=== PATIENT | female | born 1995 | race African-American/Black ===

== ENCOUNTER 2019-01-07 10:20 | Emergency (ER) | payer MEDICAID, OTHER, SELFPAY ==
[2019-01-07 11:10] LABS: Pregnancy Test - Urine (BHCG) POSITIVE (Negative); Pregu Control Background? CLEAR/WHITE (CLR/WHITE); Pregu Control Bar Appear? YES (CONTROL BAR)
[2019-01-07 11:30] LABS: Bacteria/HPF None Seen HPF (None Seen); Bilirubin Negative (Negative); Blood, Urine Negative (Negative); Clarity Clear (Clear); Glucose, Urine (Dipstick) Normal (Negative); Leukocyte Negative Leu/uL (Negative); Nitrite Negative (Negative); Protein, Urine (Dipstick) Negative (Neg-Trace); RBC/HPF 0-3 HPF (0-3); Urobilinogen Normal mg/dL (Less than 2); WBC/HPF 0-3 HPF (0-3)
[2019-01-07 11:59] LABS: #Eosinphils 0.1 thou/uL (0.0-0.7); #Lymphocytes 2.1 thou/uL (1.20-3.40); #Monocytes 0.6 thou/uL (0.11-0.59); %Basophils 0.5 % (0.0-1.0); %Eosinophils 0.8 % (0.0-10.0); %Lymphocytes 30.9 % (21.0-51.0); %Monocytes 8.8 % (0.0-10.0); Hemoglobin 11.9 g/dL (12.0-16.0); Mean Corpuscular HGB CONC 33.3 g/dL (32.0-36.0); Mean Corpuscular Hemoglobin 28.8 pg (27.0-31.0); Mean Corpuscular Volume 86.6 fL (78.0-98.0); Mean Platelet Volume 7.2 fL (7.4-10.4); Platelet Count 266 thou/uL (130-400); RBC Distribution Width 14.8 % (11.5-14.5); Red Blood Cell (RBC) Count 4.14 mill/uL (4.20-5.40); White Blood Cell (WBC) Count 6.7 thou/uL (4.8-10.8)
[2019-01-07 12:15] LABS: ALT (SGPT) 8 U/L (8-55); AST (SGOT) 15 U/L (5-34); Albumin 4.3 g/dL (3.5-5.0); Alkaline Phosphatase 36 U/L (40-110); Anion Gap 11 mmol/L (10-20); BUN (Urea Nitrogen) 4 mg/dL (7.0-18.7); Bilirubin, Total 0.5 mg/dL (0.2-1.2); Calc. Creatinine Clearance 0 mL/min (70-130); Calcium 9.3 mg/dL (7.8-10.44); Carbon Dioxide 26 mmol/L (22-29); Chloride 106 mmol/L (98-107); Estimated GFR-MDRD Greater than 90; Globulin 3.1 g/dL (2.4-3.5); Glucose 84 mg/dL (70-105); Potassium 3.6 mmol/L (3.5-5.1); Protein, Total 7.4 g/dL (6.0-8.3); Sodium 139 mmol/L (136-145)
== END 2019-01-07 12:45 | disposition home or self-care (01) ==
LOC: ERS 10:20
DX: O21.9 Vomiting of pregnancy, unspecified (principal); O99.89 Other specified diseases and conditions complicating pregnancy, childbirth and the puerperium; R19.7 Diarrhea, unspecified
CPT/HCPCS: 36415; 80053; 81003; 81025; 84702; 85025

== ENCOUNTER 2019-01-16 11:39 | Emergency (ER) | payer MEDICAID, OTHER ==
[2019-01-16 12:19] LABS: #Eosinphils 0.1 thou/uL (0.0-0.7); #Lymphocytes 2.1 thou/uL (1.20-3.40); #Monocytes 0.7 thou/uL (0.11-0.59); %Basophils 0.6 % (0.0-1.0); %Eosinophils 0.9 % (0.0-10.0); %Lymphocytes 30.8 % (21.0-51.0); %Monocytes 9.9 % (0.0-10.0); %Neutrophils 57.8 % (42.0-75.0); Mean Corpuscular HGB CONC 33.3 g/dL (32.0-36.0); Mean Corpuscular Hemoglobin 28.5 pg (27.0-31.0); Mean Corpuscular Volume 85.5 fL (78.0-98.0); Mean Platelet Volume 7.1 fL (7.4-10.4); Platelet Count 247 thou/uL (130-400); RBC Distribution Width 14.6 % (11.5-14.5); Red Blood Cell (RBC) Count 4.23 mill/uL (4.20-5.40); White Blood Cell (WBC) Count 6.9 thou/uL (4.8-10.8)
[2019-01-16 12:48] LABS: ALT (SGPT) Less than 7 U/L (8-55); AST (SGOT) 13 U/L (5-34); Albumin 4.3 g/dL (3.5-5.0); Alkaline Phosphatase 38 U/L (40-110); Anion Gap 11 mmol/L (10-20); BUN (Urea Nitrogen) 7 mg/dL (7.0-18.7); Bilirubin, Total 0.4 mg/dL (0.2-1.2); Calc. Creatinine Clearance 0 mL/min (70-130); Calcium 9.6 mg/dL (7.8-10.44); Carbon Dioxide 25 mmol/L (22-29); Chloride 105 mmol/L (98-107); Estimated GFR-MDRD Greater than 90; Globulin 3.1 g/dL (2.4-3.5); Glucose 77 mg/dL (70-105); Potassium 4.1 mmol/L (3.5-5.1); Protein, Total 7.4 g/dL (6.0-8.3); Sodium 137 mmol/L (136-145)
== END 2019-01-16 14:10 | disposition home or self-care (01) ==
LOC: ERS 11:39
DX: O21.9 Vomiting of pregnancy, unspecified (principal); Z3A.08 8 weeks gestation of pregnancy
CPT/HCPCS: 36415; 80053; 85025

== ENCOUNTER 2019-02-02 09:02 | Emergency (ER) | payer MEDICAID, OTHER ==
[2019-02-02] MEDS ORDERED: Ondansetron PF 4 MG/2 ML Vial ONE (09:20)
[2019-02-02 09:36] LABS: #Eosinphils 0.1 thou/uL (0.0-0.7); #Lymphocytes 1.7 thou/uL (1.20-3.40); #Monocytes 0.6 thou/uL (0.11-0.59); #Neutrophils 4.1 thou/uL (1.40-6.50); %Basophils 0.6 % (0.0-1.0); %Eosinophils 1.1 % (0.0-10.0); %Lymphocytes 26.3 % (21.0-51.0); %Monocytes 8.8 % (0.0-10.0); %Neutrophils 63.2 % (42.0-75.0); Hemoglobin 11.3 g/dL (12.0-16.0); Mean Corpuscular Hemoglobin 28.8 pg (27.0-31.0); Mean Corpuscular Volume 84.8 fL (78.0-98.0); Mean Platelet Volume 7.2 fL (7.4-10.4); Platelet Count 254 thou/uL (130-400); RBC Distribution Width 14.4 % (11.5-14.5); Red Blood Cell (RBC) Count 3.92 mill/uL (4.20-5.40); White Blood Cell (WBC) Count 6.5 thou/uL (4.8-10.8)
[2019-02-02 09:57] LABS: Anion Gap 9 mmol/L (10-20); BUN (Urea Nitrogen) 6 mg/dL (7.0-18.7); Calc. Creatinine Clearance 0 mL/min (70-130); Calcium 9.2 mg/dL (7.8-10.44); Carbon Dioxide 25 mmol/L (22-29); Chloride 104 mmol/L (98-107); Estimated GFR-MDRD Greater than 90; Glucose 77 mg/dL (70-105); Potassium 3.9 mmol/L (3.5-5.1); Sodium 134 mmol/L (136-145)
== END 2019-02-02 10:25 | disposition home or self-care (01) ==
LOC: ERS 09:02
DX: O21.0 Mild hyperemesis gravidarum (principal); Z3A.09 9 weeks gestation of pregnancy
CPT/HCPCS: 80048; 85025; 96361; 96374; J2405

== ENCOUNTER 2019-02-14 17:26 | Observation (INO) | payer OTHER ==
[2019-02-14 17:53] LABS: Bacteria/HPF None Seen HPF (None Seen); RBC/HPF 0-3 HPF (0-3); WBC/HPF 0-3 HPF (0-3)
[2019-02-14 17:55] LABS: Bilirubin Small (Negative); Blood, Urine Negative (Negative); Glucose, Urine (Dipstick) Negative (Negative); Leukocyte Small (Negative); Nitrite Negative (Negative); Protein, Urine (Dipstick) 100 mg/dL (Neg-Trace)
[2019-02-14 17:57] LABS: #Basophils 0.1 thou/uL (0.0-0.2); #Eosinphils 0.1 thou/uL (0.0-0.7); #Lymphocytes 2.1 thou/uL (1.20-3.40); #Monocytes 0.7 thou/uL (0.11-0.59); #Neutrophils 6.2 thou/uL (1.40-6.50); %Basophils 0.7 % (0.0-1.0); %Eosinophils 0.6 % (0.0-10.0); %Lymphocytes 23.1 % (21.0-51.0); %Neutrophils 67.6 % (42.0-75.0); Hemoglobin 12.2 g/dL (12.0-16.0); Mean Corpuscular HGB CONC 35.2 g/dL (32.0-36.0); Mean Corpuscular Hemoglobin 30.3 pg (27.0-31.0); Mean Corpuscular Volume 86.1 fL (78.0-98.0); Platelet Count 287 thou/uL (130-400); RBC Distribution Width 14.1 % (11.5-14.5); Red Blood Cell (RBC) Count 4.04 mill/uL (4.20-5.40); White Blood Cell (WBC) Count 9.1 thou/uL (4.8-10.8)
[2019-02-14 17:59] LABS: Clarity Clear (Clear)
[2019-02-14 18:28] LABS: ALT (SGPT) Less than 7 U/L (8-55); AST (SGOT) 16 U/L (5-34); Albumin 4.1 g/dL (3.5-5.0); Alkaline Phosphatase 40 U/L (40-110); Anion Gap 12 mmol/L (10-20); BUN (Urea Nitrogen) 7 mg/dL (7.0-18.7); Bilirubin, Total 0.7 mg/dL (0.2-1.2); Calc. Creatinine Clearance 0 mL/min (70-130); Calcium 9.6 mg/dL (7.8-10.44); Carbon Dioxide 25 mmol/L (22-29); Chloride 102 mmol/L (98-107); Estimated GFR-MDRD Greater than 90; Globulin 3.5 g/dL (2.4-3.5); Glucose 94 mg/dL (70-105); Lipase 14 U/L (8-78); Potassium 3.1 mmol/L (3.5-5.1); Protein, Total 7.6 g/dL (6.0-8.3); Sodium 136 mmol/L (136-145)
[2019-02-14] MEDS ORDERED: Ondansetron PF 4 MG/2 ML Vial ONE (22:03)
[2019-02-14] MEDS ORDERED: Potassium Chloride 20 MEQ TAB ONE (22:03)
[2019-02-15 00:48] VITALS: BMI 20.2
[2019-02-15] MEDS ORDERED: Acetaminophen 500 MG TAB PO PRN (05:56)
[2019-02-15] MEDS ORDERED: NS 0.9% w/ 40 MEQ KCL 1,000 ML IV SCH (06:00)
[2019-02-15] MEDS ORDERED: Metoclopramide HCl 10 MG/2 ML VIAL IVP SCH (06:00)
[2019-02-15] MEDS ORDERED: Ondansetron PF 4 MG/2 ML Vial IVP SCH (06:00)
--- NOTE | 2019-02-15 06:33 | HP ---
HISTORY OF PRESENT ILLNESS: The patient is a 23-year-old G3, P2 female with an intrauterine at about 12 weeks' gestation, presenting with persistent nausea and vomiting to the emergency room. This will be her 4th presentation. She reports that the medications that she has taken in the past have not been helping her as she is not tolerating liquids or food very well. She reports vomiting day and night. Reports vomiting every time she tries to eat. She reports the Zofran had made her constipated and not had a bowel movement for about 2 weeks. Once she discontinued the Zofran, the patient had a large bowel movement yesterday and has since been having some diarrhea. The patient reports having significant morning sickness with her prior pregnancies, but nothing this serious. She reports about a 15-pound weight loss, dropping from 130 pounds to 118. She has not established care with any provider yet with this . She has been contemplating elective given how sick she has been. The patient denies any fever, fall or trauma. She is having headaches from the vomiting. Reports the nausea and vomiting and then the recent constipation and diarrhea. Denies any chest pain other than heartburn and has had some shortness of breath. Denies any new rashes, hip problems, knee problems, muscle weakness. Denies abdominal pain. She does say she is a little bit tender in the suprapubic region, but attributes that to muscle soreness from the vomiting. Denies any vaginal bleeding or leakage of fluid. PAST MEDICAL HISTORY: Negative. PAST SURGICAL HISTORY: She has had 2 prior C-sections. ALLERGIES: NO KNOWN DRUG ALLERGIES. MEDICATIONS: The patient has been on Zofran and Diclegis at home. SOCIAL HISTORY: Denies any drug, alcohol, or tobacco use currently. She is a former smoker and reports that she has since discontinued. REVIEW OF SYSTEMS: Per HPI. PHYSICAL EXAMINATION: VITAL SIGNS: Blood pressure 111/72, temperature 97.8, pulse of 101, respiratory rate of 20, saturating 100% on room air. GENERAL: She appears to be in no acute distress. She is alert, oriented, cooperative, and pleasant to interact with. HEAD: Normocephalic, atraumatic. LUNGS: Clear to auscultation bilaterally. HEART: Regular rate and rhythm. ABDOMEN: Soft. She has some minimal tenderness in the suprapubic region, but again reporting feels to be more muscular. EXTREMITIES: Nontender, nonedematous. LABORATORY DATA: Shows urinalysis negative for nitrites or bacteria or white blood cells. She does have small ketones present and a small amount of leukocyte esterase and 4 to 6 squamous cells. Sodium is 136, potassium is 3.1, BUN is 7, creatinine is 0.74. LFTs are within normal limits. White count of 9.1, hemoglobin 12.2, hematocrit 34.8, and platelets of 287,000. Quantitative HCG is pending. ASSESSMENT AND PLAN: The patient is a 23-year-old with persistent nausea and vomiting, hypokalemia and weight loss in the setting of , failing outpatient management. We have placed her on scheduled Zofran, vitamin B6, doxylamine and Reglan. She is currently n.p.o. with IV fluids. Once the patient's appetite has returned, we will attempt to feed her, and if successful, we will attempt to move her to oral medications with the Zofran and Reglan. Anticipate discharge home in the next 1 to 2 days. Job ID: [id number]
[2019-02-15] MEDS ORDERED: Doxylamine 25 MG TAB PO SCH (09:00)
[2019-02-15] MEDS ORDERED: pyridOXINE 50 MG (B6) TAB PO SCH (09:00)
[2019-02-15] MEDS ORDERED: Famotidine 20 MG TAB PO SCH (09:00)
[2019-02-15] MEDS ORDERED: Polyethylene Glycol 3350 17 GM Packet PO SCH (09:00)
--- NOTE | 2019-02-15 10:13 | ULT ---
Obstetric sonogram HISTORY: Early . Assess for viability. FINDINGS: Single intrauterine gestation in variable presentation. pole and yolk sac visualized. Heart motion at 155 bpm. Amniotic fluid within normal limits. Umbilical cord shows a normal insertion. Early gestational age l imits anatomic detail. Measurements correlate with 12 weeks 2 days gestational age. IMPRESSION: Single viable intrauterine gestation. Estimated gestational age 12 weeks 2 days.
[2019-02-15 11:57] VITALS: BP 105/57; TEMP 98.7
[2019-02-15] MEDS ORDERED: FLU VACC QS2019-20(6MOS UP)/PF 60 MCG/0.5 ML SYRINGE IM ONE (21:00)
--- NOTE | 2019-02-16 07:39 | DIS ---
DATE OF ADMISSION: 02/14/2019 DATE OF DISCHARGE: 02/15/2019 TIME OF SERVICE: 1200 hours. HOSPITAL COURSE: Ms. Bentley was admitted through the emergency room last night with hyperemesis. She is noted to be 12 weeks' gestation. She had had 4 visits to the emergency room. She was admitted for IV fluids, antiemetics, and potassium repletion. Of note, the patient is scheduled for elective termination of at [facility] in [place] tomorrow and desires to make that appointment. The patient has improved significantly. Vitals include temperature 98.7, pulse 94, respirations 20, blood pressure 105/57. The patient was mildly hypokalemic at 3.1 on admission. Her beta-hCG was noted to be 91,000. Urinalysis was unremarkable except for some ketones. On physical exam, her skin turgor is improved. Her abdomen is soft and nontender, and she is tolerating regular diet, on oral antiemetics. IMPRESSION: Doing well with hyperemesis. PLAN: Discharge the patient home per her request. I asked the patient if she needed any antiemetics. She has reported she had several at home and would use those. She was given ER precautions. We will follow up as necessary. Job ID: [id number]
== END 2019-02-15 15:05 | disposition home or self-care (01) ==
LOC: ERS 17:26 → 3SE 21:41
PROVIDERS: ADMIT Obstetrics & Gynecology; ATTEND Obstetrics & Gynecology
DX: O21.1 Hyperemesis gravidarum with metabolic disturbance (principal); O99.89 Other specified diseases and conditions complicating pregnancy, childbirth and the puerperium; R19.7 Diarrhea, unspecified; R63.4 Abnormal weight loss; Z3A.12 12 weeks gestation of pregnancy
CPT/HCPCS: 36415; 76815; 80053; 81003; 81015; 83690; 84702; 85025; 96361; 96374; 96375; 96376; G0378; J2405; J2765; J3480

== ENCOUNTER 2020-12-05 20:55 | Emergency (ER) | payer OTHER | END 2020-12-05 22:17 | disposition home or self-care (01) | LOC: ERS 20:55 | DX: R51.9 Headache, unspecified (principal); R00.0 Tachycardia, unspecified | CPT/HCPCS: 99283 ==

== ENCOUNTER 2020-12-06 15:40 | Emergency (ER) | payer OTHER ==
[2020-12-06] MEDS ORDERED: Acetaminophen 500 MG TAB ONE (17:11)
[2020-12-06] MEDS ORDERED: Prochlorperazine 10 MG/2 ML VIAL ONE (17:11)
[2020-12-06] MEDS ORDERED: Ketorolac Tromethamine 30 MG/ML VIAL ONE (17:11)
[2020-12-06] MEDS ORDERED: diphenhydrAMINE 50 MG/ML VIAL ONE (17:11)
[2020-12-06 17:33] LABS: Pregnancy Test - Urine (BHCG) Negative (Negative); Pregu Control Background? CLEAR/WHITE (CLR/WHITE); Pregu Control Bar Appear? YES (CONTROL BAR); Specific Gravity 1.026 (1.002-1.036)
[2020-12-06 22:41] LABS: SARS-CoV-2 PCR by NAA Not Detected (NotDetected)
== END 2020-12-06 17:10 | disposition home or self-care (01) ==
LOC: ERS 15:40
DX: R51.9 Headache, unspecified (principal); R00.0 Tachycardia, unspecified; Z20.822 Contact with and (suspected) exposure to COVID-19
CPT/HCPCS: 70450; 81025; 96374; 96375; 99283; J0780; J1200; J1885; U0003; U0005

== ENCOUNTER 2021-01-01 09:12 | Emergency (ER) | payer MEDICAID, OTHER ==
[2021-01-01] MEDS ORDERED: Ondansetron ODT 4 MG TAB ONE (10:00)
[2021-01-01 10:30] LABS: Bacteria/HPF None Seen HPF (None Seen); Bilirubin 1+ (Negative); Blood, Urine Negative (Negative); Clarity Turbid (Clear); Glucose, Urine (Dipstick) Normal (Negative); Ketone, Urine 60 mg/dL (Negative); Leukocyte 75 Leu/uL (Negative); Nitrite Negative (Negative); Pregnancy Test - Urine (BHCG) Negative (Negative); Pregu Control Background? CLEAR/WHITE (CLR/WHITE); Pregu Control Bar Appear? YES (CONTROL BAR); Protein, Urine (Dipstick) 30 mg/dL (Neg-Trace); RBC/HPF 0-3 HPF (0-3); Specific Gravity 1.038 (1.002-1.036); Specific Gravity, Urine 1.038 (1.002-1.036); pH, Urine 5.5 (5.0-9.0)
== END 2021-01-01 11:40 | disposition home or self-care (01) ==
LOC: ERS 09:12
DX: R11.2 Nausea with vomiting, unspecified (principal); R19.7 Diarrhea, unspecified
CPT/HCPCS: 81003; 81015; 81025; 87086; 99284; Q0162

== ENCOUNTER 2021-03-12 10:11 | Emergency (ER) | payer MEDICAID ==
[2021-03-12 20:29] LABS: SARS-CoV-2 PCR by NAA DETECTED (NotDetected)
== END 2021-03-12 11:34 | disposition home or self-care (01) ==
LOC: ERS 10:11
DX: U07.1 COVID-19 (principal)
CPT/HCPCS: 99283; U0003; U0005

== ENCOUNTER 2021-06-18 12:02 | Emergency (ER) | payer BC, MEDICAID ==
[2021-06-18 13:15] LABS: #Basophils 0.1 thou/uL (0.0-0.2); #Lymphocytes 0.7 thou/uL (1.20-3.40); #Monocytes 0.8 thou/uL (0.11-0.59); #Neutrophils 4.1 thou/uL (1.40-6.50); %Basophils 0.9 % (0.0-1.0); %Eosinophils 0.1 % (0.0-10.0); %Monocytes 14.5 % (0.0-10.0); %Neutrophils 72.5 % (42.0-75.0); Mean Corpuscular HGB CONC 31.6 g/dL (32.0-36.0); Mean Corpuscular Hemoglobin 27.3 pg (27.0-31.0); Mean Corpuscular Volume 86.4 fL (78.0-98.0); Mean Platelet Volume 8.2 fL (7.4-10.4); Platelet Count 219 thou/uL (130-400); RBC Distribution Width 13.7 % (11.5-14.5); Red Blood Cell (RBC) Count 4.78 mill/uL (4.20-5.40); White Blood Cell (WBC) Count 5.7 thou/uL (4.8-10.8)
[2021-06-18] MEDS ORDERED: Metoclopramide HCl 10 MG/2 ML VIAL ONE (13:37)
[2021-06-18] MEDS ORDERED: diphenhydrAMINE 50 MG/ML VIAL ONE (13:37)
[2021-06-18] MEDS ORDERED: Ketorolac Tromethamine 30 MG/ML VIAL ONE (13:37)
[2021-06-18] MEDS ORDERED: Acetaminophen 500 MG TAB ONE (13:37)
[2021-06-18 13:41] LABS: ALT (SGPT) 32 U/L (8-55); AST (SGOT) 38 U/L (5-34); Albumin 4.2 g/dL (3.5-5.0); Alkaline Phosphatase 78 U/L (40-110); Anion Gap 15 mmol/L (10-20); BUN (Urea Nitrogen) 9 mg/dL (7.0-18.7); Bilirubin, Total 0.3 mg/dL (0.2-1.2); Calc. Creatinine Clearance 0 mL/min (70-130); Calcium 9.5 mg/dL (7.8-10.44); Carbon Dioxide 22 mmol/L (22-29); Chloride 104 mmol/L (98-107); Globulin 3.8 g/dL (2.4-3.5); Glucose 96 mg/dL (70-105); Potassium 3.7 mmol/L (3.5-5.1); Sodium 137 mmol/L (136-145)
== END 2021-06-18 15:10 | disposition home or self-care (01) ==
LOC: ERS 12:02
DX: J10.1 Influenza due to other identified influenza virus with other respiratory manifestations (principal)
CPT/HCPCS: 36415; 80053; 85025; 87804; 96365; 96375; J1200; J1885; J2765

== ENCOUNTER 2021-08-26 13:42 | Inpatient (IN) | payer BC, OTHER ==
[2021-08-26 14:39] LABS: #Basophils 0.1 thou/uL (0.0-0.2); #Eosinphils 0.1 thou/uL (0.0-0.7); #Neutrophils 5.9 thou/uL (1.40-6.50); %Eosinophils 0.8 % (0.0-10.0); %Lymphocytes 22.2 % (21.0-51.0); %Monocytes 10.6 % (0.0-10.0); %Neutrophils 65.3 % (42.0-75.0); Hemoglobin 12.9 g/dL (12.0-16.0); Mean Corpuscular Hemoglobin 27.8 pg (27.0-31.0); Mean Platelet Volume 7.8 fL (7.4-10.4); Platelet Count 247 thou/uL (130-400); RBC Distribution Width 13.3 % (11.5-14.5); Red Blood Cell (RBC) Count 4.62 mill/uL (4.20-5.40)
[2021-08-26 15:03] LABS: ALT (SGPT) 31 U/L (8-55); AST (SGOT) 31 U/L (5-34); Acetaminophen Less than 10.0 mcg/mL (10.0-30.0); Alcohol Less than 10 mg/dL (Less than 10); Alkaline Phosphatase 60 U/L (40-110); Anion Gap 12 mmol/L (10-20); BUN (Urea Nitrogen) 11 mg/dL (7.0-18.7); Bilirubin, Total 0.4 mg/dL (0.2-1.2); CK (CPK) 57 U/L (29-168); Calc. Creatinine Clearance 0 mL/min (70-130); Calcium 9.8 mg/dL (7.8-10.44); Carbon Dioxide 25 mmol/L (22-29); Chloride 104 mmol/L (98-107); Globulin 3.1 g/dL (2.4-3.5); Glucose 109 mg/dL (70-105); Potassium 4.2 mmol/L (3.5-5.1); Protein, Total 7.1 g/dL (6.0-8.3); Salicylate Less than 8.0 mg/dL (15.0-30.0); Sodium 137 mmol/L (136-145)
[2021-08-26] MEDS ORDERED: Ibuprofen 200 MG TAB ONE (16:27)
[2021-08-26 16:48] LABS: Bilirubin Negative (Negative); Blood, Urine Negative (Negative); Clarity Clear (Clear); Glucose, Urine (Dipstick) Normal (Negative); Ketone, Urine Negative (Negative); Leukocyte Negative Leu/uL (Negative); Nitrite Negative (Negative); Protein, Urine (Dipstick) Negative (Neg-Trace); Specific Gravity, Urine 1.019 (1.002-1.036); Urobilinogen Normal mg/dL (Less than 2); pH, Urine 7.5 (5.0-9.0)
[2021-08-26 16:50] LABS: Pregnancy Test - Urine (BHCG) Negative (Negative); Pregu Control Background? CLEAR/WHITE (CLR/WHITE); Pregu Control Bar Appear? YES (CONTROL BAR); Specific Gravity 1.019 (1.002-1.036)
[2021-08-26 16:58] LABS: Amphetamine Not Detected (NotDetected); Barbiturates Screen Not Detected (NotDetected); Benzodiazepine Screen Not Detected (NotDetected); Cocaine Metabolite Screen Not Detected (NotDetected); Methadone Not Detected (NotDetected); Methamphetamine Not Detected (NotDetected); Opiate Screen Not Detected (NotDetected); Oxycodone Screen Not Detected (NotDetected); Phencyclidine (PCP) Not Detected (NotDetected); THC/Cannabinoid Screen Detected (NotDetected); Tricyclic Screen Not Detected (NotDetected)
[2021-08-26] MEDS ORDERED: Acetaminophen 500 MG TAB ONE (17:43)
[2021-08-26 19:00] LABS: Free T4 (Free Thyroxine) 2.01 ng/dL (0.70-1.48)
[2021-08-26] MEDS ORDERED: Ondansetron PF 4 MG/2 ML Vial IVP PRN (21:19)
[2021-08-26] MEDS ORDERED: HYDROcodone/Acetaminophen 7.5/325 mg Tablet PO PRN (21:19)
[2021-08-26] MEDS ORDERED: Melatonin 3 MG TAB PO PRN (21:24)
[2021-08-26] MEDS ORDERED: Methimazole 10 MG TAB PO SCH (22:45)
[2021-08-26] MEDS ORDERED: Enoxaparin Sodium 40 MG/0.4 ML SYRINGE SC SCH (22:45)
[2021-08-26] MEDS ORDERED: Propranolol HCl 20 MG TAB PO SCH (22:45)
[2021-08-26] MEDS ORDERED: Enoxaparin Sodium 40 MG/0.4 ML SYRINGE ONE (22:52)
[2021-08-26] MEDS ORDERED: HYDROcodone/Acetaminophen 5/325 mg Tablet ONE (22:52)
[2021-08-26] MEDS: HYDROcodone/Acetaminophen 5/325 mg Tablet PO PRN (23:03)
[2021-08-26] MEDS: Sodium Chloride 0.9% 1,000 ML IV SCH (23:07)
[2021-08-27 04:50] LABS: #Eosinphils 0.1 thou/uL (0.0-0.7); #Lymphocytes 3.2 thou/uL (1.20-3.40); #Monocytes 0.8 thou/uL (0.11-0.59); #Neutrophils 3.9 thou/uL (1.40-6.50); %Basophils 0.4 % (0.0-1.0); %Eosinophils 1.7 % (0.0-10.0); %Lymphocytes 39.2 % (21.0-51.0); %Monocytes 10.1 % (0.0-10.0); %Neutrophils 48.7 % (42.0-75.0); Hemoglobin 12.1 g/dL (12.0-16.0); Mean Corpuscular HGB CONC 32.1 g/dL (32.0-36.0); Mean Corpuscular Hemoglobin 27.9 pg (27.0-31.0); Mean Corpuscular Volume 86.8 fL (78.0-98.0); Mean Platelet Volume 8.1 fL (7.4-10.4); Platelet Count 219 thou/uL (130-400); RBC Distribution Width 13.5 % (11.5-14.5); Red Blood Cell (RBC) Count 4.35 mill/uL (4.20-5.40); White Blood Cell (WBC) Count 8.1 thou/uL (4.8-10.8)
[2021-08-27 05:28] LABS: ALT (SGPT) 32 U/L (8-55); AST (SGOT) 35 U/L (5-34); Albumin 3.5 g/dL (3.5-5.0); Alkaline Phosphatase 53 U/L (40-110); Anion Gap 13 mmol/L (10-20); BUN (Urea Nitrogen) 11 mg/dL (7.0-18.7); Bilirubin, Total 0.5 mg/dL (0.2-1.2); Calc. Creatinine Clearance 147 mL/min (70-130); Calcium 9.4 mg/dL (7.8-10.44); Carbon Dioxide 24 mmol/L (22-29); Chloride 106 mmol/L (98-107); Globulin 3.1 g/dL (2.4-3.5); Glucose 86 mg/dL (70-105); Potassium 4.1 mmol/L (3.5-5.1); Protein, Total 6.6 g/dL (6.0-8.3); Sodium 139 mmol/L (136-145)
[2021-08-27] MEDS ORDERED: HYDROcodone/Acetaminophen 5/325 mg Tablet ONE (07:53)
[2021-08-27] MEDS: HYDROcodone/Acetaminophen 5/325 mg Tablet PO PRN (07:56)
[2021-08-27] MEDS: Methimazole 10 MG TAB PO SCH (08:01)
[2021-08-27] MEDS: Propranolol HCl 20 MG TAB PO SCH ×2 (08:01→20:32)
[2021-08-27 08:48] LABS: SARS-CoV-2 NAA Rapid Test Not Detected (NotDetected)
[2021-08-27] MEDS: Sodium Chloride 0.9% 1,000 ML IV SCH (10:50)
[2021-08-27] MEDS: Acetaminophen 325 MG TAB PO PRN ×2 (17:00→23:54)
[2021-08-27] MEDS: Enoxaparin Sodium 40 MG/0.4 ML SYRINGE SC SCH (20:32)
[2021-08-28] MEDS: Sodium Chloride 0.9% 1,000 ML IV SCH ×2 (02:45→17:35)
[2021-08-28] MEDS: Atenolol 25 MG TAB PO SCH (10:13)
[2021-08-28] MEDS: Methimazole 10 MG TAB PO SCH (10:13)
[2021-08-28 10:59] VITALS: BMI 22.3
[2021-08-28] MEDS: Acetaminophen 325 MG TAB PO PRN (13:02)
[2021-08-28] MEDS: Enoxaparin Sodium 40 MG/0.4 ML SYRINGE SC SCH (21:04)
[2021-08-29] MEDS ORDERED: diphenhydrAMINE 25 MG CAP PO PRN (01:50)
[2021-08-29] MEDS: Sodium Chloride 0.9% 1,000 ML IV SCH (02:53)
[2021-08-29] MEDS: Atenolol 25 MG TAB PO SCH (11:57)
[2021-08-29] MEDS: Methimazole 10 MG TAB PO SCH (11:57)
[2021-08-29 16:31] VITALS: BP 136/88; TEMP 97.7
== END 2021-08-29 12:10 | disposition home or self-care (01) | DRG 644 ==
LOC: ERS 13:42 → EEVIPCON 13:42 → 2NO 19:49 → ERHOLD 20:01 → 2NO 08-27 14:03 → OBSVTOIN 08-27 15:59 → T4-B 08-28 23:48
PROVIDERS: ADMIT Internal Medicine; ATTEND Internal Medicine
DX: E05.00 Thyrotoxicosis with diffuse goiter without thyrotoxic crisis or storm (principal); R45.851 Suicidal ideations; E21.3 Hyperparathyroidism, unspecified; Z20.822 Contact with and (suspected) exposure to COVID-19; F32.A Depression, unspecified; M54.50 Low back pain, unspecified; M79.672 Pain in left foot; M79.642 Pain in left hand; F41.9 Anxiety disorder, unspecified; Z81.8 Family history of other mental and behavioral disorders; Z83.2 Family history of diseases of the blood and blood-forming organs and certain disorders involving the immune mechanism
CPT/HCPCS: 36415; 70450; 72100; 76536; 80053; 80306; 80307; 81003; 81025; 82550; 84439; 84443; 84480; 84481; 85025; 86376; 86800; 93005; 94760; 96372; G0378; J1650; J7050; U0002

== ENCOUNTER 2022-03-03 09:46 | Emergency (ER) | payer BC, OTHER ==
[2022-03-03 10:30] LABS: #Eosinphils 0.1 thou/uL (0.0-0.7); #Lymphocytes 2.1 thou/uL (1.20-3.40); #Monocytes 0.8 thou/uL (0.11-0.59); #Neutrophils 8.7 thou/uL (1.40-6.50); %Basophils 0.3 % (0.0-1.0); %Eosinophils 0.4 % (0.0-10.0); %Lymphocytes 17.9 % (21.0-51.0); %Monocytes 7.1 % (0.0-10.0); %Neutrophils 74.2 % (42.0-75.0); Hemoglobin 12.4 g/dL (12.0-16.0); Mean Corpuscular HGB CONC 33.1 g/dL (32.0-36.0); Mean Corpuscular Hemoglobin 29.8 pg (27.0-31.0); Mean Corpuscular Volume 90.2 fl (78.0-98.0); Mean Platelet Volume 7.3 fL (7.4-10.4); Platelet Count 265 10x3/uL (130-400); Red Blood Cell (RBC) Count 4.16 mill/uL (4.20-5.40); White Blood Cell (WBC) Count 11.7 10x3/uL (4.8-10.8)
[2022-03-03 10:44] LABS: BHCG - Serum Negative (NEGATIVE); Pregs Control Background? CLEAR/WHITE (CLR/WHITE); Pregs Control Bar Appear? YES (CONTROL BAR)
[2022-03-03 10:56] LABS: Bacteria/HPF 4+ HPF (None Seen); Bilirubin Negative (Negative); Blood, Urine 3+ (Negative); Clarity Turbid (Clear); Glucose, Urine (Dipstick) Normal (Negative); Ketone, Urine Negative (Negative); Leukocyte 500 Leu/uL (Negative); Nitrite Negative (Negative); Protein, Urine (Dipstick) 50 mg/dL (Neg-Trace); RBC/HPF Greater than 50 HPF (0-3); Specific Gravity, Urine 1.022 (1.002-1.036); Urobilinogen Normal mg/dL (Less than 2); WBC/HPF Greater than 50 HPF (0-3); pH, Urine 6.5 (5.0-9.0)
[2022-03-03 10:58] LABS: ALT (SGPT) 15 U/L (8-55); AST (SGOT) 24 U/L (5-34); Alkaline Phosphatase 57 U/L (40-110); Anion Gap 11 mmol/L (10-20); BUN (Urea Nitrogen) 12 mg/dL (7.0-18.7); Bilirubin, Total 0.5 mg/dL (0.2-1.2); Calc. Creatinine Clearance 0 mL/min (70-130); Calcium 9.3 mg/dL (7.8-10.44); Carbon Dioxide 27 mmol/L (22-29); Chloride 103 mmol/L (98-107); Estimated GFR 114; Globulin 3.4 g/dL (2.4-3.5); Glucose 81 mg/dL (70-105); Potassium 3.9 mmol/L (3.5-5.1); Protein, Total 7.4 g/dL (6.0-8.3); Sodium 137 mmol/L (136-145)
[2022-03-03] MEDS ORDERED: cefTRIAXone\\ROCEPHIN 2 GM VIAL ONE (11:17)
[2022-03-03] MEDS ORDERED: Ondansetron ODT 4 MG TAB ONE (11:18)
[2022-03-03] MEDS ORDERED: metroNIDAZOLE 250 MG TAB ONE (15:00)
[2022-03-03] MEDS ORDERED: Doxycycline 100 MG CAP PO SCH (15:30)
[2022-03-04 10:46] LABS: Chlamydia by PCR Not Detected (NotDetected); GC by PCR Not Detected (NotDetected)
== END 2022-03-03 15:34 | disposition home or self-care (01) ==
LOC: ERS 09:46
DX: N10 Acute pyelonephritis (principal); N89.8 Other specified noninflammatory disorders of vagina; I10 Essential (primary) hypertension; E03.9 Hypothyroidism, unspecified
CPT/HCPCS: 36415; 74176; 80053; 81003; 81015; 83605; 83690; 84703; 85025; 87077; 87086; 87186; 87480; 87491; 87510; 87591; 87660; 96365; J0696; Q0162

== ENCOUNTER 2023-06-02 22:05 | Emergency (ER) | payer SELFPAY ==
[~2023-06-02 22:05] MED LIST: Iopamidol-370 76% 500 ML MDV (1 ML CHARGE) ONE
[2023-06-02] MEDS ORDERED: Ondansetron PF 4 MG/2 ML Vial ONE (22:48)
[2023-06-02] MEDS ORDERED: Magnesium 2 GM/50 ML BAG (IN WATER) ONE (22:48)
[2023-06-02] MEDS ORDERED: Morphine 4 MG/ML VIAL ONE (22:48)
[2023-06-02 22:58] LABS: #Basophils 0.07 10x3/uL (0.0-0.2); %Basophils 0.6 % (0.0-1.0); %Eosinophils 2.4 % (0.0-10.0); %Lymphocytes 29.2 % (21.0-51.0); %Monocytes 8.1 % (0.0-10.0); %Neutrophils 59.4 % (42.0-75.0); Hematocrit 35.6 % (36.0-47.0); Hemoglobin 12.1 g/dL (12.0-16.0); Mean Corpuscular Hemoglobin 29.6 pg (27.0-31.0); Platelet Count 371 10x3/uL (130-400); Red Blood Cell (RBC) Count 4.09 mill/uL (4.20-5.40)
[2023-06-02 23:17] LABS: ALT (SGPT) 8 U/L (8-55); AST (SGOT) 13 U/L (5-34); Albumin 4.1 g/dL (3.5-5.0); Alkaline Phosphatase 41 U/L (40-110); Anion Gap 14 mmol/L (10-20); BUN (Urea Nitrogen) 13 mg/dL (7.0-18.7); Bilirubin, Total 0.2 mg/dL (0.2-1.2); CK (CPK) 53 U/L (29-168); Calc. Creatinine Clearance 0 mL/min (70-130); Calcium 9.4 mg/dL (7.8-10.44); Carbon Dioxide 26 mmol/L (22-29); Chloride 103 mmol/L (98-107); Estimated GFR 104; Globulin 3.4 g/dL (2.4-3.5); Glucose 100 mg/dL (70-105); Potassium 3.9 mmol/L (3.5-5.1); Protein, Total 7.5 g/dL (6.0-8.3); Sodium 139 mmol/L (136-145)
[2023-06-02 23:29] LABS: HCG, Total Quant Less than 1.20 mIU/mL (See Ranges)
[2023-06-03 02:01] LABS: Influenza A by NAA Not Detected (NotDetected); Influenza B by NAA Not Detected (NotDetected); SARS-CoV-2 NAA Rapid Test Not Detected (NotDetected)
== END 2023-06-03 03:05 | disposition home or self-care (01) ==
LOC: ERS 22:05
DX: M48.02 Spinal stenosis, cervical region (principal); M54.12 Radiculopathy, cervical region; I10 Essential (primary) hypertension; E03.9 Hypothyroidism, unspecified; F17.210 Nicotine dependence, cigarettes, uncomplicated; Z79.899 Other long term (current) drug therapy; Z55.6 Problems related to health literacy; Z75.8 Other problems related to medical facilities and other health care
CPT/HCPCS: 70492; 71045; 80053; 82550; 83605; 84443; 84702; 85025; 86140; 87040; 93005; 96365; 96375; J2270; J2405; J3475; Q9967

== ENCOUNTER 2024-02-16 11:01 | Emergency (ER) | payer SELFPAY | END 2024-02-16 12:24 | disposition left against medical advice (07) | LOC: ERS 11:01 | DX: Z53.21 Procedure and treatment not carried out due to patient leaving prior to being seen by health care provider (principal) ==